=== PATIENT | female | born 1990 | race Caucasian/White ===

== ENCOUNTER 2016-07-10 10:14 | Emergency (ER) | payer MEDICAID ==
[~2016-07-10] VITALS: Ht 152.4 cm; Wt 64.0 kg
[2016-07-10 12:10] VITALS: BP 105/60
== END 2016-07-10 12:12 | disposition home or self-care (01) ==
LOC: ED 11:40
DX: J20.9 Acute bronchitis, unspecified (principal); H66.92 Otitis media, unspecified, left ear; H66.91 Otitis media, unspecified, right ear; L20.9 Atopic dermatitis, unspecified; J30.2 Other seasonal allergic rhinitis
CPT/HCPCS: 71020